=== PATIENT | male | born 1965 | race Caucasian/White ===

== ENCOUNTER 2016-08-04 09:38 | Emergency (ER) | payer OTHER ==
[~2016-08-04] VITALS: Ht 177.8 cm; Wt 99.8 kg
[~2016-08-04 09:38] MED LIST: ENDOCET 325 MG-1 TA1 PO; HYDROCODONE/ACE1 TA1 PO; MOBIC15 MG PO
[2016-08-04 09:50] LABS: ABSOLUTE BASOPHIL COUNT 0.1 /CUMM (0.0-0.2); ABSOLUTE EOSINOPHIL COUNT 0.4 /CUMM (0.0-0.7); ABSOLUTE GRANULOCYTE CT 12.6 /CUMM (1.4-6.5); ABSOLUTE LYMPH COUNT 2.5 /CUMM (1.2-3.4); ABSOLUTE MONOCYTE COUNT 0 /CUMM (0.10-0.60); BASOPHIL % 0.9 % (0.0-2.0); EOSINOPHIL % 2.4 % (0-5); GRANULOCYTE % 80.7 % (42.2-75.2); HEMATOCRIT 46.5 % (42-52); MEAN CORPUSCULAR HGB 30.8 PG (27.0-31.0); MEAN CORPUSCULAR HGB CONC 33.4 G/DL (33.0-37.0); MEAN PLATELET VOLUME 8.5 FL (7.4-10.4); PLATELET COUNT 259 /CUMM (130-400); RBC DISTRIBUTION WIDTH 13.8 % (11.5-14.5); RED BLOOD CELL CT 5.05 /CUMM (4.70-6.10); WHITE BLOOD CELL COUNT 15.7 /CUMM (4.8-10.8)
--- NOTE | 2016-08-04 10:01 | ED GENERAL ADULT ---
History of Present Illness General Chief Complaint: Abdominal Pain/Flank Pain Stated Complaint: FLANK PAIN Source: patient Exam Limitations: no limitations Vital Signs & Intake/Output Vital Signs & Intake/Output Vital Signs Date Time Temp Pulse Resp B/P Pulse O2 O2 Flow FiO2 Ox Delivery Rate 08/04 1325 99.2 83 18 142/80 95 Room Air 08/04 1135 98.9 79 18 129/74 96 Room Air 08/04 0942 98.0 97 20 197/93 98 Room Air Allergies Coded Allergies: NO KNOWN ALLERGIES (05/24/11) Reconcile Medications HYDROCODONE/ACETAMINOPHEN (Hydrocodon-Acetaminophen 5-325) 1 TAB TAB 1-2 TAB PO Q6P PRN PAIN Ondansetron HCl (Zofran) 4 MG TABLET 1 TAB PO Q8 PRN NAUSEA Oxycodone HCl/Acetaminophen (Percocet 7.5-325 MG Tablet) 7.5 MG-325 MG TABLET 1 TAB PO TID PRN PAIN Tamsulosin HCl (Flomax) 0.4 MG CAP.ER.24H 1 CAP PO DAILY KIDNESY STONES Triage Note: PT PRESENTS TO ER C/O OF LEFT FLANK PAIN SINCE 6AM. PT STATES PAIN RADIATES AROUND TO LLQ. PT STATES HE HAS A HX OF KIDNEY STONES AND THIS PAIN FEELS SMILIAR BUT SHARPER. PT STATES HE LAST HAD A STONE 2 YEARS AGO AND HAD A STENT PLACED. PT DENIES N/V Triage Nurses Notes Reviewed? yes HPI: 08/04/16 10 am 50-year-old male presents to the emergency department with severe left-sided flank pain. He has a past medical history of renal colic. He denies other past medical history. The onset of his symptoms was abrupt, the duration was since 6 this morning, the severity was significant as his symptoms required to come to the emergency department for care. He has associated nausea and severe left flank pain. Past History Travel History Traveled to [place] past 21 day No Medical History Any Pertinent Medical History? 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 No Review of Systems Review of Systems Constitutional: Denies: fever. EENTM: Reports: no symptoms. Respiratory: Reports: no symptoms. Cardiovascular: Reports: no symptoms. GI: Reports: abdominal pain. Genitourinary: Reports: see HPI. Musculoskeletal: Reports: back pain. Skin: Denies: rash. Neurological/Psychological: Denies: headache. Hematologic/Endocrine: Reports: no symptoms. Physical Exam Physical Exam General Appearance: alert, awake, anxious, moderate distress Head: atraumatic, normal appearance Eyes: Bilateral: normal appearance, PERRL, EOMI. Ears, Nose, Throat: normal pharynx, normal ENT inspection Neck: normal inspection, supple, full range of motion Respiratory: normal breath sounds, chest non-tender, no respiratory distress Cardiovascular: regular rate/rhythm Peripheral Pulses: 4+ radial (R), 4+ radial (L) Gastrointestinal: soft, non-tender Back: CVA tenderness (L) Extremities: no edema Neurologic/Psych: no motor/sensory deficits, awake, alert, oriented x 3 Skin: intact, normal color, warm/dry Core Measures ACS in differential dx? No CVA/TIA Diagnosis: No Severe Sepsis Present: No Septic Shock Present: No Progress Differential Diagnoses I considered the following diagnoses in my evaluation of the patient: [Renal colic, disc herniation, diverticulitis, aortic dissection, pyelonephritis] Plan of Care: Orders Procedure Date/time Status Add-on Test (ER Only) 08/04 1329 Active CULTURE,URINE 08/04 1002 Active URINALYSIS 08/04 1002 Complete COMPREHENSIVE METABOLIC PANEL 08/04 0944 Complete CBC WITHOUT DIFFERENTIAL 08/04 0944 Complete Laboratory Tests 08/04/16 1045: Urinalysis LIGHT H, Urine Color YEL, Urine Clarity CLEAR, Urine pH 6.0, Ur Specific [place] 1.025, Urine Protein 30 H, Urine Ketones NEG, Urine Nitrite NEG, Urine Bilirubin NEG, Urine Urobilinogen 0.2, Ur Leukocyte Esterase NEG, Ur Microscopic SEDIMENT EXAMINED, Urine RBC 25-50 H, Urine WBC 1-3 H, Ur Epithelial Cells FEW, Hyaline Casts RARE H, Urine Mucus RARE, Urine Hemoglobin MOD H, Urine Glucose NEG 08/04/16 0944: Anion Gap 12, Estimated GFR > 60, BUN/Creatinine Ratio 17.8, Glucose 137 H, Calcium 10.2, Total Bilirubin 0.5, AST 30, ALT 48, Alkaline Phosphatase 99, Total Protein 7.4, Albumin 4.5, Globulin 2.9, Albumin/Globulin Ratio 1.6, CBC w Diff NO MAN DIFF REQ, RBC 5.05, MCV 92.0, MCH 30.8, RDW 13.8, MPV 8.5, Gran % 80.7 H, Lymphocytes % 15.8 L, Monocytes % 0.2 L, Eosinophils % 2.4, Basophils % 0.9, Absolute Granulocytes 12.6 H, Absolute Lymphocytes 2.5, Absolute Monocytes 0 L, Absolute Eosinophils 0.4, Absolute Basophils 0.1, PUBS MCHC 33.4 Microbiology 08/04 1002 URINE ROUT: Urine Culture - RECD Initial ED EKG: none Departure Departure Disposition: HOME OR SELF CARE Condition: Stable Clinical Impression Primary Impression: Renal colic Referrals: ARVIND MENON,YARIEL Arredondo (PCP/Family) Departure Forms: Customer Survey General Discharge Information Prescriptions: Current Visit Scripts Oxycodone HCl/Acetaminophen (Percocet 7.5-325 MG Tablet) 1 TAB PO TID PRN PAIN #15 TAB Tamsulosin HCl (Flomax) 1 CAP PO DAILY #6 CAP Ondansetron HCl (Zofran) 1 TAB PO Q8 PRN NAUSEA #8 TAB Comments 08/04/16 The patient was treated with IV Dilaudid, IV Toradol and IV fluids CT scan results shown below - PATIENT: KYM ESTRADA PRESENT AGE: 50 PATIENT ACCOUNT NO: [id number] : 67 LOCATION: [facility] ORDERING PHYSICIAN: KENNEY HAYES DO SERVICE DATE: 08/04/16 EXAM TYPE: CAT - CT ABD & PELVIS W/O IV CONTRAS EXAMINATION: CT ABDOMEN AND PELVIS WITHOUT CONTRAST CLINICAL INFORMATION: Left-sided flank pain. COMPARISON: 08/26/2008. TECHNIQUE: Multidetector volumetric imaging was performed from the superior aspect of the liver through the pubic symphysis. Sagittal and coronal reformatted images were obtained on the technologist's workstation. DLP: 968 mGy-cm FINDINGS: LUNG BASES: Unremarkable. KIDNEYS, URETERS, AND ADRENALS: No left renal calculi are identified, however there is a 2-3 mm left distal ureteral calculus approximately 2-3 cm proximal to the ureterovesicular junction. There is mild left-sided hydroureteronephrosis with mild perinephric stranding. There are 3 right-sided renal calculi the largest in the interpolar region measuring 7 mm maximal dimension. There is a 2.5 cm midpole right renal cyst laterally with a small focus of thin calcification in the wall inferiorly. This has increased slightly in size since the previous exam. URINARY BLADDER: Collapsed limiting evaluation, however unremarkable appearing. LIVER AND SPLEEN: There is diffuse hepatic steatosis with focal fatty sparing in the gallbladder fossa. No focal hepatic lesions are seen. PANCREAS GALLBLADDER AND BILIARY TREE: Unremarkable. GI TRACT: Stomach and small bowel appear unremarkable. The appendix is not identified. There are postsurgical changes consistent with a previous segmental sigmoid resection. There are a few scattered diverticula in the distal descending and proximal sigmoid colon without evidence of acute diverticulitis. PERITONEAL CAVITY: No intraperitoneal free fluid or focal masses. No mesenteric lymphadenopathy. RETROPERITONEUM: Mild atherosclerotic right iliac artery calcification. There is no evidence of retroperitoneal lymphadenopathy. PELVIC ORGANS: Prostate appears unremarkable. Urinary bladder nearly completely collapsed. OSSEOUS STRUCTURES: No focal destructive or sclerotic osseous lesions are seen. There is mild endplate vertebral body spurring in the lower thoracic spine. There is moderate joint space narrowing in the hips bilaterally with small to moderate-sized marginal osteophytes right side greater than left. ANTERIOR ABDOMINAL WALL AND SOFT TISSUES: Unremarkable without evidence of a definite hernia. IMPRESSION: 1. Mild left-sided hydroureteronephrosis with a small distal left ureteral calculus. 2. Multiple small right renal calculi and a mildly complex right renal cyst. 3. Diffuse hepatic steatosis. 4. Distal descending and proximal sigmoid colon diverticulosis with post surgical changes consistent with a previous segmental sigmoid resection. 5. There are degenerative changes in the hips bilaterally. 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 08/04/16 The patient still has some pain at 1:30 PM. But it is significantly relieved. I shared the results of the CAT scan with him and he would like to try to go home. We'll give 2 Percocets here in the ED now. He will take Percocet as needed for pain. Flomax as directed. Empirically start him on Cipro and he'll follow-up with his urologist Dr. Brooks tomorrow. He was told to return to the emergency department if worse in any way and to drink lots of fluids. IMPRESSION: 1. Mild left-sided hydroureteronephrosis with a small distal left ureteral calculus. 2. Multiple small right renal calculi and a mildly complex right renal cyst. 3. Diffuse hepatic steatosis. 4. Distal descending and proximal sigmoid colon diverticulosis with post surgical changes consistent with a previous segmental sigmoid resection. 5. There are degenerative changes in the hips bilaterally. 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 <Electronically signed in Other Vendor System> SIGNED BY: CARLITO WILSON MD 1054 Critical Care Note Critical Care Note Critical Care Time: non-applicable
--- NOTE | 2016-08-04 10:54 | CT SCAN REPORT ---
EXAMINATION: CT ABDOMEN AND PELVIS WITHOUT CONTRAST CLINICAL INFORMATION: Left-sided flank pain. COMPARISON: 08/26/2008. TECHNIQUE: Multidetector volumetric imaging was performed from the superior aspect of the liver through the pubic symphysis. Sagittal and coronal reformatted images were obtained on the technologist's workstation. DLP: 968 mGy-cm FINDINGS: LUNG BASES: Unremarkable. KIDNEYS, URETERS, AND ADRENALS: No left renal calculi are identified, however there is a 2-3 mm left distal ureteral calculus approximately 2-3 cm proximal to the ureterovesicular junction. There is mild left-sided hydroureteronephrosis with mild perinephric stranding. There are 3 right-sided renal calculi the largest in the interpolar region measuring 7 mm maximal dimension. There is a 2.5 cm midpole right renal cyst laterally with a small focus of thin calcification in the wall inferiorly. This has increased slightly in size since the previous exam. URINARY BLADDER: Collapsed limiting evaluation, however unremarkable appearing. LIVER AND SPLEEN: There is diffuse hepatic steatosis with focal fatty sparing in the gallbladder fossa. No focal hepatic lesions are seen. PANCREAS GALLBLADDER AND BILIARY TREE: Unremarkable. GI TRACT: Stomach and small bowel appear unremarkable. The appendix is not identified. There are postsurgical changes consistent with a previous segmental sigmoid resection. There are a few scattered diverticula in the distal descending and proximal sigmoid colon without evidence of acute diverticulitis. PERITONEAL CAVITY: No intraperitoneal free fluid or focal masses. No mesenteric lymphadenopathy. RETROPERITONEUM: Mild atherosclerotic right iliac artery calcification. There is no evidence of retroperitoneal lymphadenopathy. PELVIC ORGANS: Prostate appears unremarkable. Urinary bladder nearly completely collapsed. OSSEOUS STRUCTURES: No focal destructive or sclerotic osseous lesions are seen. There is mild endplate vertebral body spurring in the lower thoracic spine. There is moderate joint space narrowing in the hips bilaterally with small to moderate-sized marginal osteophytes right side greater than left. ANTERIOR ABDOMINAL WALL AND SOFT TISSUES: Unremarkable without evidence of a definite hernia. IMPRESSION: 1. Mild left-sided hydroureteronephrosis with a small distal left ureteral calculus. 2. Multiple small right renal calculi and a mildly complex right renal cyst. 3. Diffuse hepatic steatosis. 4. Distal descending and proximal sigmoid colon diverticulosis with post surgical changes consistent with a previous segmental sigmoid resection. 5. There are degenerative changes in the hips bilaterally.
[2016-08-04 13:25] VITALS: BP 142/80
[2016-08-04] MEDS ORDERED: PERCOCET 7.5-31 EACH PO (13:37)
[2016-08-04] MEDS ORDERED: ZOFRAN4 M2 PO (13:37)
[2016-08-04] MEDS ORDERED: FLOMAX0.4 M1 PO (13:37)
== END 2016-08-04 13:46 ==
LOC: ERH 09:38
PROVIDERS: Emergency Medicine
DX: N23 Unspecified renal colic (principal)
CPT/HCPCS: 74176; 81001; 87086; 96374; 96375; 96376

== ENCOUNTER 2016-08-05 15:24 | Emergency (ER) | payer OTHER ==
[~2016-08-05] VITALS: Ht 177.8 cm; Wt 99.8 kg
[~2016-08-05 15:24] MED LIST changes: +FLOMAX0.4 M1 PO; +PERCOCET 7.5-31 EACH PO; +ZOFRAN4 M2 PO
[2016-08-05 15:43] VITALS: BP 141/91
--- NOTE | 2016-08-05 15:59 | ED GI/GU/ABDOMINAL COMPLAINT ---
History of Present Illness General Chief Complaint: Abdominal Pain/Flank Pain Stated Complaint: ?KIDNEY STONE Source: patient, old records Exam Limitations: no limitations Vital Signs & Intake/Output Vital Signs & Intake/Output Vital Signs Date Time Temp Pulse Resp B/P Pulse O2 O2 Flow FiO2 Ox Delivery Rate 08/05 1543 98.4 103 18 141/91 99 Room Air Allergies Coded Allergies: NO KNOWN ALLERGIES (08/10/16) Reconcile Medications HYDROCODONE/ACETAMINOPHEN (Hydrocodon-Acetaminophen 5-325) 1 TAB TAB 1-2 TAB PO Q6P PRN PAIN Ondansetron HCl (Zofran) 4 MG TABLET 1 TAB PO Q8 PRN NAUSEA Oxycodone HCl/Acetaminophen (Percocet 7.5-325 MG Tablet) 7.5 MG-325 MG TABLET 1 TAB PO TID PRN PAIN Tamsulosin HCl (Flomax) 0.4 MG CAP.ER.24H 1 CAP PO DAILY KIDNESY STONES Triage Note: C/O WORSENING LEFT SIDED ABODMINAL PAIN SINCE YESTERDAY. WAS SEEN HERE, DXD WITH KIDNEY STONE (5MM). PAIN WORSE TODAY WITH CHILLS, UNABLE TO EAT. Triage Nurses Notes Reviewed? yes Onset: Abrupt Duration: day(s): (FEW) Timing: recent history Quality/Severity: moderate Location: left flank Radiation: back Activities at Onset: none No Modifying Factors: none HPI: This is a 50-year-old male with history of previous renal colic presented to the ER yesterday and was diagnosed with a left-sided ureteral stone comes to the ER for chief complaint of persistent left-sided pain. Patient states he really came in today because he had chills last night was worried that he maybe was developing infection. No document fever at home. Dr. Mookie denny his urologist and was due to see him in the office tomorrow. He states he took the Percocet at home without any relief. Also of concern is the fact that he is drinking a lot of fluid that had very minimal urine output at home. Past History Travel History Traveled to [place] past 21 day No Medical History Any Pertinent Medical History? 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 No Review of Systems Review of Systems Constitutional: Reports: chills. Denies: fever. EENTM: Reports: no symptoms. Respiratory: Reports: no symptoms. Cardiovascular: Reports: no symptoms. GI: Reports: abdominal pain, nausea. Denies: vomiting. Genitourinary: Reports: no symptoms. Musculoskeletal: Reports: back pain. Skin: Reports: no symptoms. Neurological/Psychological: Reports: no symptoms. Hematologic/Endocrine: Denies: bruising, bleeding, polyuria, polydipsia. Immunologic/Allergic: Reports: no symptoms. All Other Systems: Reviewed and Negative Physical Exam Physical Exam General Appearance: well developed/nourished, alert, awake, anxious, moderate distress, obese Head: atraumatic, normal appearance Eyes: Bilateral: normal appearance, PERRL, EOMI. Ears, Nose, Throat, Mouth: hearing grossly normal, moist mucous membrane Neck: normal inspection, supple, full range of motion Respiratory: normal breath sounds, chest non-tender, no respiratory distress Cardiovascular: regular rate/rhythm Peripheral Pulses: 2+ radial (R), 2+ radial (L) Gastrointestinal: soft, tenderness (LEFT FLANK), REDUCIBLE UMBILICAL HERNIA Back: normal inspection, normal range of motion Neurologic/Psych: no motor/sensory deficits, awake, alert, oriented x 3 Core Measures ACS in differential dx? No Severe Sepsis Present: No Septic Shock Present: No Progress Differential Diagnosis: ureterolithiasis, UTI/pyelo, OBSTRUCTIVE UROPATHY, UTI, SEPSIS Plan of Care: Orders Procedure Date/time Status Add-on Test (ER Only) 08/05 1609 Active CULTURE,URINE 08/05 1604 Active URINALYSIS 08/05 1604 Complete COMPREHENSIVE METABOLIC PANEL 08/05 1601 Complete CBC WITHOUT DIFFERENTIAL 08/05 1601 Complete Current Medications Sig/Germaine Start time Last Medication Dose Stop Time Status Admin Ceftriaxone Sodium 1,000 MG ONCE ONE 08/05 1845 UNVr (Rocephin) 08/05 1846 Laboratory Tests 08/05/16 1730: Urine Color STRAW, Urine Clarity CLEAR, Urine pH 6.0, Ur Specific [place] 1.015, Urine Protein NEG, Urine Ketones NEG, Urine Nitrite NEG, Urine Bilirubin NEG, Urine Urobilinogen 0.2, Ur Leukocyte Esterase NEG, Ur Microscopic SEDIMENT EXAMINED, Urine RBC RARE, Ur Epithelial Cells RARE, Urine Hemoglobin SMALL H, Urine Glucose NEG 08/05/16 1601: Anion Gap 11, Estimated GFR > 60, BUN/Creatinine Ratio 11.7, Glucose 131 H, Calcium 9.3, Total Bilirubin 0.9, AST 23, ALT 43, Alkaline Phosphatase 82, Total Protein 7.0, Albumin 4.3, Globulin 2.7, Albumin/Globulin Ratio 1.6, CBC w Diff MAN DIFF ORDERED, RBC 4.59 L, MCV 90.2, MCH 30.7, RDW 13.5, MPV 8.4, Gran % 74.9, Lymphocytes % 12.8 L, Monocytes % 7.8, Eosinophils % 3.0, Basophils % 1.5 , Absolute Granulocytes 13.2 H, Segmented Neutrophils 80 H, Absolute Lymphocytes 2.3, Lymphocytes 13 L, Monocytes 4, Absolute Monocytes 1.4 H, Eosinophils 3, Absolute Eosinophils 0.5, Absolute Basophils 0.3, Platelet Estimate VERIFIED BY SMEAR, Normocytic RBCs VERIFIED, Normochromic RBCs VERIFIED , PUBS MCHC 34.1, Fld Total RBCs Counted 100 Microbiology 08/05 1730 URINE ROUT: Urine Culture - RECD 08/05/2016 5:11:28 PM Patient feeling better after Toradol and morphine. White blood cell count is increased to 17,000. UA pending at this time. ROCEPHIN 1 GM ORDERED. LEUKOCYTOSIS WITH CHILLS AND HISTORY OF SEPSIS. D/W DR NICOLE. WILL FOLLOW UP WITH PATIENT IN THE OFFICE. (MELANI MENON,[place]) Initial ED EKG: none Departure Departure Disposition: HOME OR SELF CARE Condition: Stable Clinical Impression Primary Impression: Renal colic on left side Referrals: ARVIND MENON,YARIEL Arredondo (PCP/Family) JANES NICOLE MD Additional Instructions: FOLLOW UP WITH DR NICOLE IN THE OFFICE TOMORROW MORNING AT 9 AM. Departure Forms: Customer Survey General Discharge Information
[2016-08-05 16:38] LABS: ABSOLUTE BASOPHIL COUNT 0.3 /CUMM (0.0-0.2); ABSOLUTE EOSINOPHIL COUNT 0.5 /CUMM (0.0-0.7); ABSOLUTE GRANULOCYTE CT 13.2 /CUMM (1.4-6.5); ABSOLUTE LYMPH COUNT 2.3 /CUMM (1.2-3.4); ABSOLUTE MONOCYTE COUNT 1.4 /CUMM (0.10-0.60); BASOPHIL % 1.5 % (0.0-2.0); GRANULOCYTE % 74.9 % (42.2-75.2); MEAN CORPUSCULAR HGB 30.7 PG (27.0-31.0); MEAN CORPUSCULAR HGB CONC 34.1 G/DL (33.0-37.0); MEAN CORPUSCULAR VOLUME 90.2 FL (80.0-94.0); MEAN PLATELET VOLUME 8.4 FL (7.4-10.4); PLATELET COUNT 246 /CUMM (130-400); RBC DISTRIBUTION WIDTH 13.5 % (11.5-14.5); RED BLOOD CELL CT 4.59 /CUMM (4.70-6.10); WHITE BLOOD CELL COUNT 17.6 /CUMM (4.8-10.8)
[2016-08-05 16:42] LABS: HEMATOCRIT 41.4 % (42-52)
--- NOTE | 2016-08-06 11:40 | Cons- Urology ---
General Information and HPI Consulting Request Date of Consult: 08/05/16 Requested By: MD MELANI, SARAH Reason for Consult: SEVERE LEFT COLIC WITH ARF. Source of Information: patient, old records Exam Limitations: no limitations History of Present Illness: 50 YEAR OLD WITH HX STONES. PRESENTED TO ER WITH 2-3DAYS OF WORSENING LEFT RENAL COLIC. NO FEVER, CHILL, N/V. CT SCAN DONE REVEALING OBSTRUCTED LEFT URETER STONE WITH HYDRO/PERINEPHRIC STRANDING AND ADDITIONAL LEFT RENAL STONE. PLAN FOR STENT, AND SUBSEQUENT ESWLS, DISCUSSED WITH PT WHO WISHES TO PROCEED. Allergies/Medications Allergies: Coded Allergies: NO KNOWN ALLERGIES (05/24/11) Home Med List: HYDROCODONE/ACETAMINOPHEN (Hydrocodon-Acetaminophen 5-325) 1 TAB TAB 1-2 TAB PO Q6P PRN PAIN Ondansetron HCl (Zofran) 4 MG TABLET 1 TAB PO Q8 PRN NAUSEA Oxycodone HCl/Acetaminophen (Percocet 7.5-325 MG Tablet) 7.5 MG-325 MG TABLET 1 TAB PO TID PRN PAIN Tamsulosin HCl (Flomax) 0.4 MG CAP.ER.24H 1 CAP PO DAILY KIDNESY STONES Current Medications: Current Medications Sig/Germaine Start time Last Medication Dose Route Stop Time Status Admin Ceftriaxone Sodium 0 .STK-MED ONE 08/05 1903 DC .ROUTE Ceftriaxone Sodium 1,000 MG ONCE ONE 08/05 1845 DC 08/05 IV 08/05 1846 1911 Hydromorphone HCl 1 MG ONCE ONE 08/05 1730 DC 08/05 IV 08/05 1731 1741 Hydromorphone HCl 0 .STK-MED ONE 08/05 1730 DC .ROUTE Ketorolac 0 .STK-MED ONE 08/05 1619 DC Tromethamine .ROUTE Ketorolac 30 MG ONCE ONE 08/05 1615 DC 08/05 Tromethamine IV 08/05 1616 1626 Morphine Sulfate 0 .STK-MED ONE 08/05 1620 DC .ROUTE Morphine Sulfate 6 MG ONCE ONE 08/05 1615 DC 08/05 IV 08/05 1616 1626 Sodium Chloride 1,000 ML BOLUS ONE 08/05 1615 DC 08/05 IV 08/05 1714 1626 Past History Medical History Neurological: NONE EENT: NONE Cardiovascular: NONE Respiratory: NONE Gastrointestinal: NONE Hepatic: NONE Renal: KIDNEY STONES Musculoskeletal: NONE Psychiatric: NONE Endocrine: NONE Blood Disorders: NONE Cancer(s): NONE 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 no Review of Systems Review of Systems Constitutional: Denies: no symptoms. EENTM: Denies: no symptoms. Cardiovascular: Denies: no symptoms. Respiratory: Denies: no symptoms. GI: Reports: abdominal pain, bloating. Genitourinary: Denies: no symptoms. Musculoskeletal: Denies: no symptoms. Skin: Denies: no symptoms. Exam & Diagnostic Data Vital Signs and I&O Vital Signs Date Time Temp Pulse Resp B/P Pulse O2 O2 Flow FiO2 Ox Delivery Rate 08/05 1543 98.4 103 18 141/91 99 Room Air Intake & Output 08/06 1600 08/06 0800 08/06 0000 08/05 1600 08/05 0800 08/05 0000 Intake Total 1000 Output Total Balance 1000 Intake, IV 1000 Patient 220 lb Weight Physical Exam General Appearance: well developed/nourished, obese Head: atraumatic Eyes: Bilateral: normal appearance. Ears, Nose, Throat: normal pharynx Neck: normal inspection Cardiovascular: regular rate/rhythm Gastrointestinal: normal bowel sounds Extremities: normal inspection Reproductive: Normal male genitalia Last 24 Hours of Labs: Laboratory Tests 08/05 1730 Urines Urine Color (YEL,AMB,STR) STRAW Urine Clarity (CLEAR) CLEAR Urine pH (5.0 - 8.0) 6.0 Ur Specific [place] (1.001 - 1.035) 1.015 Urine Protein (NEG,<30 MG/DL) NEG Urine Ketones (NEG) NEG Urine Nitrite (NEG) NEG Urine Bilirubin (NEG) NEG Urine Urobilinogen (0.1 - 1.0 EU/dl) 0.2 Ur Leukocyte Esterase (NEG) NEG Ur Microscopic SEDIMENT EXAMINED Urine RBC (0 - 5 /HPF) RARE Ur Epithelial Cells (NONE,FEW) RARE Urine Hemoglobin (NEG) SMALL H Urine Glucose (N MG/DL) NEG 08/05 1601 Chemistry Sodium (137 - 145 mmol/L) 133 L Potassium (3.5 - 5.1 mmol/L) 4.3 Chloride (98 - 107 mmol/L) 98 Carbon Dioxide (22 - 30 mmol/L) 24 Anion Gap (5 - 16) 11 BUN (9 - 20 mg/dL) 14 Creatinine (0.7 - 1.2 mg/dL) 1.2 Estimated GFR (>60 ml/min) > 60 BUN/Creatinine Ratio (7 - 25 %) 11.7 Glucose (65 - 99 mg/dL) 131 H Calcium (8.4 - 10.2 mg/dL) 9.3 Total Bilirubin (0.2 - 1.3 mg/dL) 0.9 AST (17 - 59 U/L) 23 ALT (21 - 72 U/L) 43 Alkaline Phosphatase (< 127 U/L) 82 Total Protein (6.3 - 8.2 g/dL) 7.0 Albumin (3.5 - 5.0 g/dL) 4.3 Globulin (1.9 - 4.2 gm/dL) 2.7 Albumin/Globulin Ratio (1.1 - 2.2 %) 1.6 Hematology CBC w Diff MAN DIFF ORDERED WBC (4.8 - 10.8 /CUMM) 17.6 H RBC (4.70 - 6.10 /CUMM) 4.59 L Hgb (14.0 - 18.0 G/DL) 14.1 Hct (42 - 52 %) 41.4 L MCV (80.0 - 94.0 FL) 90.2 MCH (27.0 - 31.0 PG) 30.7 RDW (11.5 - 14.5 %) 13.5 Plt Count (130 - 400 /CUMM) 246 MPV (7.4 - 10.4 FL) 8.4 Gran % (42.2 - 75.2 %) 74.9 Lymphocytes % (20.5 - 51.1 %) 12.8 L Monocytes % (1.7 - 9.3 %) 7.8 Eosinophils % (0 - 5 %) 3.0 Basophils % (0.0 - 2.0 %) 1.5 Absolute Granulocytes (1.4 - 6.5 /CUMM) 13.2 H Segmented Neutrophils (42.2 - 75.2 %) 80 H Absolute Lymphocytes (1.2 - 3.4 /CUMM) 2.3 Lymphocytes (20.5 - 51.1 %) 13 L Monocytes (1.7 - 9.3 %) 4 Absolute Monocytes (0.10 - 0.60 /CUMM) 1.4 H Eosinophils (0 - 5.0 %) 3 Absolute Eosinophils (0.0 - 0.7 /CUMM) 0.5 Absolute Basophils (0.0 - 0.2 /CUMM) 0.3 Platelet Estimate (ADEQUATE) VERIFIED BY SMEAR Normocytic RBCs VERIFIED Normochromic RBCs VERIFIED PUBS MCHC (33.0 - 37.0 G/DL) 34.1 Other Body Source Fld Total RBCs Counted (%) 100 Imaging Results: PATIENT: KYM ESTRADA PRESENT AGE: 50 PATIENT ACCOUNT NO: [id number] : 67 LOCATION: [facility] ORDERING PHYSICIAN: KENNEY HAYES DO SERVICE DATE: 08/04/16 EXAM TYPE: CAT - CT ABD & PELVIS W/O IV CONTRAS EXAMINATION: CT ABDOMEN AND PELVIS WITHOUT CONTRAST CLINICAL INFORMATION: Left-sided flank pain. COMPARISON: 08/26/2008. TECHNIQUE: Multidetector volumetric imaging was performed from the superior aspect of the liver through the pubic symphysis. Sagittal and coronal reformatted images were obtained on the technologist's workstation. DLP: 968 mGy-cm FINDINGS: LUNG BASES: Unremarkable. KIDNEYS, URETERS, AND ADRENALS: No left renal calculi are identified, however there is a 2-3 mm left distal ureteral calculus approximately 2-3 cm proximal to the ureterovesicular junction. There is mild left-sided hydroureteronephrosis with mild perinephric stranding. There are 3 right-sided renal calculi the largest in the interpolar region measuring 7 mm maximal dimension. There is a 2.5 cm midpole right renal cyst laterally with a small focus of thin calcification in the wall inferiorly. This has increased slightly in size since the previous exam. URINARY BLADDER: Collapsed limiting evaluation, however unremarkable appearing. LIVER AND SPLEEN: There is diffuse hepatic steatosis with focal fatty sparing in the gallbladder fossa. No focal hepatic lesions are seen. PANCREAS GALLBLADDER AND BILIARY TREE: Unremarkable. GI TRACT: Stomach and small bowel appear unremarkable. The appendix is not identified. There are postsurgical changes consistent with a previous segmental sigmoid resection. There are a few scattered diverticula in the distal descending and proximal sigmoid colon without evidence of acute diverticulitis. PERITONEAL CAVITY: No intraperitoneal free fluid or focal masses. No mesenteric lymphadenopathy. RETROPERITONEUM: Mild atherosclerotic right iliac artery calcification. There is no evidence of retroperitoneal lymphadenopathy. PELVIC ORGANS: Prostate appears unremarkable. Urinary bladder nearly completely collapsed. OSSEOUS STRUCTURES: No focal destructive or sclerotic osseous lesions are seen. There is mild endplate vertebral body spurring in the lower thoracic spine. There is moderate joint space narrowing in the hips bilaterally with small to moderate-sized marginal osteophytes right side greater than left. ANTERIOR ABDOMINAL WALL AND SOFT TISSUES: Unremarkable without evidence of a definite hernia. IMPRESSION: 1. Mild left-sided hydroureteronephrosis with a small distal left ureteral calculus. 2. Multiple small right renal calculi and a mildly complex right renal cyst. 3. Diffuse hepatic steatosis. 4. Distal descending and proximal sigmoid colon diverticulosis with post surgical changes consistent with a previous segmental sigmoid resection. 5. There are degenerative changes in the hips bilaterally. Assessment/Plan Assessment/Plan LEFT OBSTRUCTED KIDNEY DUE TO URETER STONE./STENT NOW-SUBSEQUENT ESWL/STENT REMOVAL NEXT WEEK. Copies To: COREY MENON,JANES Consult Acknowledgment - Thank you for your consult request. Attending MD Review Statement Attending Statement Attending MD Statement: examined this patient, discuss w/resident/PA/VENDOR ANALYST Attending Assessment/Plan: PT OVERALL STABLE NOW WITH PAIN MEDS. TO BE SCHEDULED FOR STENT AND ESWL IN NEXT FEW DAYS.
== END 2016-08-05 19:16 ==
LOC: ERH 15:24
PROVIDERS: Emergency Medicine
DX: N23 Unspecified renal colic (principal)
CPT/HCPCS: 81001; 87086; 96374; 96375; J0696; J1885

== ENCOUNTER → 2016-08-06 | Day surgery (SDC) | payer OTHER ==
[2007-10-30 12:35] VITALS: BP 146/82
--- NOTE | 2016-08-07 16:58 | RADIOLOGY REPORT ---
EXAMINATION: INTRAOPERATIVE FLUOROSCOPY DURING LEFT URETEROSCOPY AND RETROGRADE STENT INSERTION CLINICAL INDICATION: Intraoperative fluoroscopic guidance provided for retrograde left ureteral stent placement by Dr. Brooks. COMPARISON: None. TECHNIQUE: The procedure was performed by Dr. Brooks in the operating room. FLUOROSCOPY TIME: 56 seconds. FINDINGS: Several spot images were obtained demonstrating cannulation of the left ureteral orifice and retrograde insertion of a left ureteral stent. Proximal portion of the stent appears to project in the region of the left kidney. The distal portion appears to project in the region of the urinary bladder. IMPRESSION: Intraoperative fluoroscopy was utilized by Dr. Brooks during left ureteroscopy and retrograde stent insertion. Please refer to the operative report for a detailed description of the procedure and the real-time findings made and acted upon by the surgeon.
--- NOTE | 2016-08-11 08:24 | Operative Report ---
Operative/Inv Procedure Report Surgery Date: 08/06/16 Name of Procedure: cystoscopy: left retrograde pyelogram-fluoroscopy: left stent insertion. Pre-Operative Diagnosis: left ureter stone with hydro. and severe colic. Post-Operative Diagnosis: same Estimated Blood Loss: scant Surgeon/Fishing Guide: JANES NICOLE MD Anesthesia: moderate sedation Condition: None improved Operative/Procedure Note Note: The patient was taken to the operating room and placed on the OR table in supine position. Timeout was performed, with the patient awake, in order to confirm identity, procedure, laterality, antibiotics, anesthesia, and other pertinent information. After adequate anesthesia and antibiotics the patient was placed in lithotomy stirrups draped and prepped in the usual surgical fashion. A 22 Jamaican cystoscope sheath with 30 angle lens was inserted into the urethra without difficulty. Upon entering the prostatic urethra, the prostate was noted to have mild BPH. Upon entering the bladder, the bladder was noted to be free of tumor, free of stone, with bilateral clear reflux from bilateral ureteral orifices. Under direct visualization the left orifice was intubated with a 5 Jamaican open ended ureteral catheter. Left retrograde pyelogram was performed with fluoroscopy revealing hydronephrotic left kidney, a filling defect consistent with stone, in the left mid ureter. The open-ended ureteral catheter was removed followed by insertion of a 0.035 Glidewire. The Glidewire was advanced into the left renal pelvis without difficulty. Over this Glidewire, a 6 x 22 Bard onlay double-J stent was inserted. The proximal coil was visualized and left renal pelvis, on fluoroscopy, and the distal coil was in the bladder cystoscopically. The Glidewire was removed leaving this stent in proper place, with clear reflux from the left side at this point. The cystoscope was removed under direct visualization, after draining the bladder. 10cc of uroject was instilled into the urethra for 10 min. with a penile clamp in place. The patient tolerated procedure well was then taken to recovery in satisfactory condition. Discharge Disposition: PACU CC: JANES NICOLE MD
== END ==
LOC: STS 07:00
DX: N13.2 Hydronephrosis with renal and ureteral calculous obstruction (principal); Z87.442 Personal history of urinary calculi; K57.92 Diverticulitis of intestine, part unspecified, without perforation or abscess without bleeding; F17.200 Nicotine dependence, unspecified, uncomplicated
CPT/HCPCS: 74000; C2617; J2250; J2405

== ENCOUNTER → 2016-08-11 | Day surgery (SDC) | payer OTHER ==
[~2016-08-11] VITALS: Ht 177.8 cm; Wt 108.9 kg
--- NOTE | 2016-08-11 15:42 | Operative Report ---
Operative/Inv Procedure Report Surgery Date: 08/11/16 Name of Procedure: Left ureter ESWL, cystoscopy stent removal. Pre-Operative Diagnosis: Left ureter stone and stent. Post-Operative Diagnosis: Same Estimated Blood Loss: scant Surgeon/Exhibit Display Representative: JANES NICOLE MD Anesthesia: moderate sedation Operative/Procedure Note Note: The patient was taken to the operating room and placed on the ESWL table in supine position. With the patient awake, the patient's left flank was placed over the table cut-out, overlying the dome of the shockwave generator. C-arm fluroscopy, as well as renal US was used to locate the ureter stone, and evaluate the left kidney. The stone was faintly visible on fluroloscopy at the level of the mid-ureter, adjacent to the stent. Renal US confimred mild hydronephrosis without stone seen in the kidney. The left ureter stone was approximate 6 mm in size, and it's position was optimized with the use of fluoroscopy at: AP and Oblique views. After adequate anesthesia and antibiotics , the left ureter E.S.W.L. was initiated at low power levels x200 shocks. After noting the patient's tolerance to the shockwaves, the shockwave power level was quickly maximumized. Toward the end of the procedure, the composition of the stone had changed significantly indicating the pulverization of the ureter stone. A total of 3000 shockwaves were delivered to the stone in order to achieve adequate lithotrypsy. The patient was then frog-legged, draped and prepped in the usual surgical fashion. A 22 Mauritanian cystoscope sheath with a 30 angle lens was inserted into the urethra, and into the bladder without difficulty. Upon entering the bladder the bladder was noted to be free of tumor free of stone both orifices in orthotopic position. The left orifice was intubated with a stent. The stent was grabbed with alligator forcep, and the cystoscope along with entire stent was removed without difficulty. The patient tolerated both procedures well, was awakened, and taken to recovery in satisfactory condition via stretcher. The pt. will eventually be dischared to home with pain meds, diet orders, and intructions to catch fragments with straining the urine. The patient is to have follow-up renal ultrasound and KUB in 2 weeks, prior to follow-up visit in my office.. Discharge Disposition: Same Day Admissions CC: COREY MENON,JANES
== END ==
LOC: STS 03:14
DX: N13.2 Hydronephrosis with renal and ureteral calculous obstruction (principal); Z87.442 Personal history of urinary calculi; K57.92 Diverticulitis of intestine, part unspecified, without perforation or abscess without bleeding
CPT/HCPCS: J2250

== ENCOUNTER → 2017-01-12 | Day surgery (SDC) | payer OTHER ==
[~2017-01-12] VITALS: Ht 177.8 cm; Wt 108.9 kg
[~2017-01-12] MED LIST changes: +PERCOCET 5-3251 EACH PO
--- NOTE | 2017-01-12 16:40 | Operative Report ---
Operative/Inv Procedure Report Surgery Date: 01/12/17 Name of Procedure: right renal ESWL Pre-Operative Diagnosis: right stone Post-Operative Diagnosis: same Estimated Blood Loss: none Surgeon/Interior Design Teacher: JANES NICOLE MD Anesthesia: moderate sedation Specimens: none Complications: none Operative/Procedure Note Note: The patient was taken to the operating room placed on the OR table in supine position. Timeout was performed, with the patient awake, in order to confirm correct procedure, laterality, anesthesia, and other pertinent perioperative information. After adequate anesthesia and antibiotics, the patient was then positioned over the ESWL table cutout overlying the treatment dome. Fluoroscopy , using AP and oblique views, as well as renal ultrasound, or performed in order to locate the stone. The position of the stone was optimized and positioned in the middle of the ESWL crosshairs. The stone was measured to be approximately 7 mm in size. ESWL was initiated at low power, and after 200 shockwaves delivered , noting the patient's tolerance to the shockwaves, the power was increased to maximum. At the end of 2500 shockwaves, fluoroscopy confirms the change in consistency of the stone, indicating shattering of the stone. The patient tolerated this procedure well. Discharge Disposition: PACU CC: JANES NICOLE MD
== END ==
LOC: STS 02:02
DX: N20.0 Calculus of kidney (principal); F17.200 Nicotine dependence, unspecified, uncomplicated
CPT/HCPCS: J2405

== ENCOUNTER → 2017-12-14 | Day surgery (SDC) | payer OTHER ==
[~2017-12-14] VITALS: Ht 172.7 cm; Wt 108.9 kg
--- NOTE | 2017-12-14 13:50 | Operative Report ---
Operative/Inv Procedure Report Surgery Date: 12/14/17 Name of Procedure: left renal colic: left midpole stone Pre-Operative Diagnosis: left colic and left stone. Post-Operative Diagnosis: same Estimated Blood Loss: none Surgeon/Primary Grade Teacher: Mark Brooks MD Anesthesia: moderate sedation Complications: none Operative/Procedure Note Note: The patient was taken to the operating room and placed on the ESWL table in supine position. With the patient awake, timeout was performed to confirm correct identity, procedure, laterality, anesthesia, and other pertinent fozia- operative information. After adequate anesthesia, the patient was positioned so that the patient's left flank was positioned over the table cut-out, overlying the dome of the treatment head. Once the patient was adequately sedated, fluoroscopy, as well as Renal ultrasound was used to locate the LEFT renal stone. Renal US confirmed the presence of the stone which measured it to be approximately 6 mm upper pole stone. The stone was visible with fluoroscopy. Renal US revealed, no hydronephrosis, and no solid tumor, and presence of the stone. The position of the stone was optimized by using fluoroscopy in AP and oblique views;placing the stone within the ESWL c-arm crosshairs. Once the stone's position was optimized , the LEFT renal E.S.W.L. was initiated at low energy level. After noting the patient's tolerance to the shockwaves, the intensitiy was ramped up to maximum level. At the end of the procedure, the left renal stone had dissintegrated. Of note, a total of 2500 shockwaves were delivered to the stone. The patient tolerated the ESWL procedures well, was awakened, then taken to recovery in satisfactory condition via stretcher. The patient was dischared home with pain medications, diet orders, and intructions to catch fragments by straining the urine. The patient to to have follow-up renal ultrasound and KUB in 1 to 2 weeks, prior to follow-up visit in my office. He will then proceed with metabolic stone work-up. Discharge Disposition: Same Day Admissions CC: Mark Brooks MD
== END ==
LOC: STS 02:09
DX: N20.0 Calculus of kidney (principal); K21.9 Gastro-esophageal reflux disease without esophagitis; F17.200 Nicotine dependence, unspecified, uncomplicated; K57.90 Diverticulosis of intestine, part unspecified, without perforation or abscess without bleeding
CPT/HCPCS: J2250